=== PATIENT | male | born 1965 | race Caucasian/White ===

== ENCOUNTER 2019-01-25 20:32 | Observation (INO) ==
[2019-01-25] MEDS ORDERED: MORPHINE 4 MG/1 ML VIAL IV STA (21:05)
[2019-01-25] MEDS ORDERED: ASPIRIN 325 MG TABLET PO STA (21:05)
[2019-01-25] MEDS ORDERED: NITROGLYCERIN 2% OINT 1 INCH/GM PACK TOP STA (21:05)
[2019-01-25] MEDS ORDERED: ONDANSETRON 4 MG/2 ML VIAL IV STA (21:05)
[2019-01-25 21:23] LABS: Basophils % 0.3 % (0.0-0.8); Eosinophils # 0.1 10*3/uL (0.0-0.87); Eosinophils % 1.1 % (0.00-10.9); Hematocrit 37.9 VOL% (42.0-52.0); Hemoglobin 12.4 GM/DL (14.0-18.0); Immature Granulocytes % 0.4 %; Immature Granulocytes Absolute 0.04 #; Lymphocytes # 1.5 10*3/uL (1.4-4.0); Lymphocytes % 15.6 % (21.2-54.2); Mean Corpuscular HGB Conc 32.7 GM/DL (32-36); Mean Platelet Volume 9.2 FL (9.6-12.0); Monocytes % 10.2 % (1.7-12.7); Neutrophils % 72.4 % (38.7-73.9); Platelet Count 232 T/CUMM (130-400); Red Blood Count 4.21 MC/CUMM (3.8-5.5); Red Cell Distribution Width 13.1 % (9.3-17.3); White Blood Count 9.9 T/CUMM (4-12)
[2019-01-25 21:38] LABS: INR 0.9; PT Patient Result 10.2 SECS
[2019-01-25 21:48] LABS: Albumin 3.2 G/DL (3.4-5.0); Bilirubin,Total 0.4 MG/DL (0.2-1.0); Calcium 8.8 MG/DL (8.5-10.1); Osmolality,Calculated 282.3 MOS/KG (273-304); Total Protein 6.5 G/DL (6.4-8.3)
[2019-01-25 22:49] LABS: Apearance,Urine CLEAR (Clear); Bilirubin,Urine Negative (Negative); Blood, Urine Negative (Negative); Glucose,Urine (UA) Negative (Negative); Ketones,Urine Negative (Negative); Nitrite,Urine Negative (Negative); Protein,Urine Negative; RBC,Urine <1 /HPF (0-4); Urine Color Yellow (Yellow); Urine Specific Gravity 1.008 (1.001-1.035); Urine Urobilinogen < 2.0 EU/DL (0.2-1.0)
[2019-01-26] MEDS ORDERED: MORPHINE 4 MG/1 ML VIAL IV PRN (00:04)
[2019-01-26] MEDS ORDERED: ONDANSETRON 4 MG/2 ML VIAL IV PRN (00:04)
[2019-01-26] MEDS ORDERED: ACETAMINOPHEN 325 MG TABLET PO PRN (00:04)
[2019-01-26 00:47] LABS: Risk Ratio 3.09; VLDL CHOLESTEROL 31.2 MG/DL
[2019-01-26] MEDS ORDERED: PNEUMOCOCCAL VACCINE (23 VALENT) 0.5 ML VIAL IM ONE (01:46)
[2019-01-26] MEDS: ENOXAPARIN 40 MG/0.4 ML SYRINGE SUBCUT SCH (02:41)
[2019-01-26] MEDS: NITROGLYCERIN 2% OINT 1 INCH/GM PACK TOP SCH ×2 (02:51→08:15)
[2019-01-26 02:52] LABS: Barbiturates Screen,Urine Negative (Negative); Benzodiazepines Screen,Urine Positive (Negative); Cannabinoid Screen,Urine Negative (Negative); Opiate Screen,Urine Positive (Negative); Phencyclidine Screen,Urine Negative (Negative)
[2019-01-26] MEDS ORDERED: FAMOTIDINE 20 MG TABLET PO SCH (09:00)
[2019-01-26] MEDS ORDERED: ASPIRIN EC 325 MG TABLET PO SCH (09:00)
[2019-01-26] MEDS ORDERED: ALUM/MAG/SIMETH/LIDO VISC 1:1 30 ML BOTTLE PO ONE (09:04)
[2019-01-26] MEDS: PANTOPRAZOLE 40 MG TABLET PO SCH ×2 (09:53→20:46)
[2019-01-26] MEDS: AMITRIPTYLINE 25 MG TABLET PO SCH (13:08)
[2019-01-26] MEDS: METOPROLOL TARTRATE 25 MG TABLET PO SCH ×2 (13:08→20:46)
[2019-01-26] MEDS: LISINOPRIL 20 MG TABLET PO SCH (13:09)
[2019-01-26] MEDS: ALPRAZolam 0.5 MG TABLET PO SCH ×2 (13:09→20:46)
[2019-01-26] MEDS ORDERED: METOPROLOL TARTRATE 5 MG/5 ML VIAL IV ONE (14:17)
[2019-01-26] MEDS: GABAPENTIN 100 MG CAPSULE PO SCH ×2 (14:54→20:46)
[2019-01-26] MEDS ORDERED: OMEGA 3 ACID ETHYL ESTERS 1 GM CAPSULE PO SCH (21:00)
[2019-01-27] MEDS: ENOXAPARIN 40 MG/0.4 ML SYRINGE SUBCUT SCH (00:58)
[2019-01-27 06:01] LABS: Basophils % 0.4 % (0.0-0.8); Eosinophils # 0.3 10*3/uL (0.0-0.87); Eosinophils % 3.6 % (0.00-10.9); Hematocrit 38.3 VOL% (42.0-52.0); Hemoglobin 12.5 GM/DL (14.0-18.0); Immature Granulocytes % 0.4 %; Immature Granulocytes Absolute 0.03 #; Lymphocytes # 2.1 10*3/uL (1.4-4.0); Lymphocytes % 24.7 % (21.2-54.2); Mean Corpuscular HGB Conc 32.6 GM/DL (32-36); Mean Corpuscular Volume 91.8 FL (87-102); Mean Platelet Volume 9.7 FL (9.6-12.0); Monocytes % 9.1 % (1.7-12.7); Neutrophils % 61.8 % (38.7-73.9); Platelet Count 249 T/CUMM (130-400); Red Blood Count 4.17 MC/CUMM (3.8-5.5); Red Cell Distribution Width 13.3 % (9.3-17.3); White Blood Count 8.5 T/CUMM (4-12)
[2019-01-27 06:16] LABS: Calcium 8.6 MG/DL (8.5-10.1); Osmolality,Calculated 281.4 MOS/KG (273-304)
[2019-01-27 07:30] VITALS: BP 103/70
[2019-01-27] MEDS: AMITRIPTYLINE 25 MG TABLET PO SCH (09:21)
[2019-01-27] MEDS: METOPROLOL TARTRATE 25 MG TABLET PO SCH (09:21)
[2019-01-27] MEDS: GABAPENTIN 100 MG CAPSULE PO SCH (09:21)
[2019-01-27] MEDS: ALPRAZolam 0.5 MG TABLET PO SCH (09:21)
[2019-01-27] MEDS: PANTOPRAZOLE 40 MG TABLET PO SCH (09:21)
[2019-01-27] MEDS: LISINOPRIL 20 MG TABLET PO SCH (09:22)
== END 2019-01-27 11:04 | disposition home or self-care (01) ==
LOC: EDUNIT# → EDBD → N.ED 20:32 → N.EDINP 20:32 → SUATTDRO 01-26 00:04 → N.3E 01-26 00:28
PROVIDERS: ADMIT Internal Medicine; ATTEND Internal Medicine

== ENCOUNTER 2019-01-27 11:39 | Inpatient (IN) ==
[2019-01-27] MEDS ORDERED: LORazepam 2 MG/1 ML VIAL IV STA (12:01)
[2019-01-27] MEDS ORDERED: ONDANSETRON 4 MG/2 ML VIAL IV STA (12:01)
[2019-01-27] MEDS ORDERED: PANTOPRAZOLE 40 MG VIAL IV STA (12:01)
[2019-01-27] MEDS ORDERED: KETOROLAC 30 MG/1 ML VIAL IV STA (12:01)
[2019-01-27 12:26] LABS: Basophils % 0.3 % (0.0-0.8); Eosinophils # 0.2 10*3/uL (0.0-0.87); Hematocrit 40.9 VOL% (42.0-52.0); Immature Granulocytes % 0.5 %; Immature Granulocytes Absolute 0.05 #; Lymphocytes # 1.3 10*3/uL (1.4-4.0); Lymphocytes % 14.3 % (21.2-54.2); Mean Corpuscular HGB Conc 31.8 GM/DL (32-36); Mean Corpuscular Volume 91.3 FL (87-102); Mean Platelet Volume 9.1 FL (9.6-12.0); Monocytes % 7.4 % (1.7-12.7); Neutrophils % 75.5 % (38.7-73.9); Platelet Count 257 T/CUMM (130-400); Red Blood Count 4.48 MC/CUMM (3.8-5.5); Red Cell Distribution Width 13.2 % (9.3-17.3); White Blood Count 9.2 T/CUMM (4-12)
[2019-01-27 12:40] LABS: INR 0.9; PT Patient Result 9.8 SECS; Partial Thromboplastin Time 27.2 SECS (0-40)
[2019-01-27 13:00] LABS: Alanine Aminotransferase 48 U/L (16-61); Albumin 3.1 G/DL (3.4-5.0); Alkaline Phosphatase 93 U/L (45-117); Aspartate Amino Transferase 29 U/L (0-37); Bilirubin,Total < 0.39 MG/DL (0.2-1.0); Blood Urea Nitrogen 17 MG/DL (7-18); Calcium 8.7 MG/DL (8.5-10.1); Glucose 97 MG/DL (74-106); Osmolality,Calculated 278.5 MOS/KG (273-304); Total Protein 7.2 G/DL (6.4-8.3); Troponin I < 0.015 NG/ML (0.00-0.045)
[2019-01-27] MEDS ORDERED: ENOXAPARIN 100 MG/ML SYRINGE SUBCUT STA (14:01)
[2019-01-27] MEDS ORDERED: ACETAMINOPHEN 325 MG TABLET PO PRN (15:38)
[2019-01-27] MEDS ORDERED: ONDANSETRON 4 MG/2 ML VIAL IV PRN (15:38)
[2019-01-27] MEDS ORDERED: WARFARIN 5 MG TABLET PO SCH (18:00)
[2019-01-27] MEDS: ALPRAZolam 0.5 MG TABLET PO SCH (20:17)
[2019-01-27] MEDS: METOPROLOL TARTRATE 25 MG TABLET PO SCH (20:17)
[2019-01-27] MEDS: AMITRIPTYLINE 75 MG TABLET PO SCH (20:17)
[2019-01-27] MEDS: GABAPENTIN 100 MG CAPSULE PO SCH (20:17)
[2019-01-28] MEDS: ENOXAPARIN 100 MG/ML SYRINGE SUBCUT SCH ×2 (02:04→14:41)
[2019-01-28 05:52] LABS: Basophils # 0.1 10*3/uL (0.0-0.2); Basophils % 0.7 % (0.0-0.8); Eosinophils # 0.3 10*3/uL (0.0-0.87); Eosinophils % 4.3 % (0.00-10.9); Hemoglobin 11.9 GM/DL (14.0-18.0); Immature Granulocytes % 0.3 %; Immature Granulocytes Absolute 0.02 #; Lymphocytes # 2.6 10*3/uL (1.4-4.0); Lymphocytes % 33.4 % (21.2-54.2); Mean Corpuscular HGB Conc 32.2 GM/DL (32-36); Mean Platelet Volume 9.5 FL (9.6-12.0); Monocytes % 8.5 % (1.7-12.7); Neutrophils % 52.8 % (38.7-73.9); Platelet Count 262 T/CUMM (130-400); Red Blood Count 4.02 MC/CUMM (3.8-5.5); Red Cell Distribution Width 13.2 % (9.3-17.3); White Blood Count 7.7 T/CUMM (4-12)
[2019-01-28 06:21] LABS: Calcium 8.6 MG/DL (8.5-10.1); Osmolality,Calculated 285.1 MOS/KG (273-304)
[2019-01-28 08:10] LABS: INR 0.9; PT Patient Result 10.1 SECS
[2019-01-28] MEDS ORDERED: PANTOPRAZOLE 40 MG TABLET PO SCH (09:00)
[2019-01-28] MEDS: ALPRAZolam 0.5 MG TABLET PO SCH ×2 (09:22→20:46)
[2019-01-28] MEDS: GABAPENTIN 100 MG CAPSULE PO SCH ×3 (09:22→20:46)
[2019-01-28] MEDS: LISINOPRIL 20 MG TABLET PO SCH (09:22)
[2019-01-28] MEDS: METOPROLOL TARTRATE 25 MG TABLET PO SCH ×2 (09:22→20:46)
[2019-01-28] MEDS: WARFARIN 10 MG TABLET PO SCH (17:26)
[2019-01-28 20:23] LABS: Basophils # 0.1 10*3/uL (0.0-0.2); Basophils % 0.7 % (0.0-0.8); Eosinophils # 0.2 10*3/uL (0.0-0.87); Hematocrit 38.2 VOL% (42.0-52.0); Hemoglobin 12.1 GM/DL (14.0-18.0); Immature Granulocytes % 0.5 %; Immature Granulocytes Absolute 0.04 #; Lymphocytes # 2.5 10*3/uL (1.4-4.0); Lymphocytes % 31.1 % (21.2-54.2); Mean Corpuscular HGB Conc 31.7 GM/DL (32-36); Mean Corpuscular Volume 92.3 FL (87-102); Mean Platelet Volume 9.1 FL (9.6-12.0); Monocytes % 10.3 % (1.7-12.7); Neutrophils % 54.4 % (38.7-73.9); Platelet Count 260 T/CUMM (130-400); Red Blood Count 4.14 MC/CUMM (3.8-5.5); Red Cell Distribution Width 13.2 % (9.3-17.3); White Blood Count 8.1 T/CUMM (4-12)
[2019-01-28] MEDS: PANTOPRAZOLE 40 MG VIAL IV SCH (20:45)
[2019-01-28] MEDS: LACTULOSE 20 GM/30 ML UDCUP PO PRN (20:46)
[2019-01-28] MEDS: MORPHINE 4 MG/1 ML VIAL IV PRN (20:47)
[2019-01-28] MEDS: AMITRIPTYLINE 75 MG TABLET PO SCH (20:54)
[2019-01-28 22:48] LABS: Apearance,Urine CLEAR (Clear); Bilirubin,Urine Negative (Negative); Blood, Urine Negative (Negative); Glucose,Urine (UA) Negative (Negative); Ketones,Urine Negative (Negative); Nitrite,Urine Negative (Negative); Protein,Urine Negative; RBC,Urine 1 /HPF (0-4); Urine Color Straw (Yellow); Urine Specific Gravity 1.006 (1.001-1.035); Urine Urobilinogen < 2.0 EU/DL (0.2-1.0); WBC,Urine 1 /HPF (0-6)
[2019-01-29] MEDS: MORPHINE 4 MG/1 ML VIAL IV PRN ×6 (01:30→22:17)
[2019-01-29] MEDS: ENOXAPARIN 100 MG/ML SYRINGE SUBCUT SCH ×2 (03:10→14:01)
[2019-01-29 05:30] LABS: Basophils # 0.1 10*3/uL (0.0-0.2); Basophils % 0.7 % (0.0-0.8); Eosinophils # 0.3 10*3/uL (0.0-0.87); Eosinophils % 3.8 % (0.00-10.9); Hematocrit 37.9 VOL% (42.0-52.0); Hemoglobin 12.3 GM/DL (14.0-18.0); Immature Granulocytes % 0.9 %; Immature Granulocytes Absolute 0.08 #; Lymphocytes # 3.1 10*3/uL (1.4-4.0); Lymphocytes % 35.9 % (21.2-54.2); Mean Corpuscular HGB Conc 32.5 GM/DL (32-36); Mean Corpuscular Volume 92.4 FL (87-102); Mean Platelet Volume 9.6 FL (9.6-12.0); Monocytes % 9.8 % (1.7-12.7); Neutrophils % 48.9 % (38.7-73.9); Platelet Count 279 T/CUMM (130-400); Red Cell Distribution Width 13.3 % (9.3-17.3); White Blood Count 8.6 T/CUMM (4-12)
[2019-01-29 05:39] LABS: INR 1.1; PT Patient Result 11.4 SECS
[2019-01-29 05:59] LABS: Calcium 8.7 MG/DL (8.5-10.1)
[2019-01-29] MEDS: GABAPENTIN 100 MG CAPSULE PO SCH ×3 (09:41→20:38)
[2019-01-29] MEDS: PANTOPRAZOLE 40 MG VIAL IV SCH ×2 (09:41→20:37)
[2019-01-29] MEDS: ALPRAZolam 0.5 MG TABLET PO SCH ×2 (09:41→20:37)
[2019-01-29] MEDS: METOPROLOL TARTRATE 25 MG TABLET PO SCH ×2 (09:41→20:38)
[2019-01-29] MEDS: LISINOPRIL 20 MG TABLET PO SCH (09:42)
[2019-01-29] MEDS: WARFARIN 10 MG TABLET PO SCH (18:11)
[2019-01-29] MEDS: AMITRIPTYLINE 75 MG TABLET PO SCH (20:37)
[2019-01-30] MEDS: ENOXAPARIN 100 MG/ML SYRINGE SUBCUT SCH (03:01)
[2019-01-30 04:58] LABS: Basophils # 0.1 10*3/uL (0.0-0.2); Basophils % 0.8 % (0.0-0.8); Eosinophils # 0.4 10*3/uL (0.0-0.87); Eosinophils % 5.1 % (0.00-10.9); Hematocrit 37.3 VOL% (42.0-52.0); Hemoglobin 12.1 GM/DL (14.0-18.0); Immature Granulocytes % 0.4 %; Immature Granulocytes Absolute 0.03 #; Lymphocytes # 2.6 10*3/uL (1.4-4.0); Lymphocytes % 33.7 % (21.2-54.2); Mean Corpuscular HGB Conc 32.4 GM/DL (32-36); Mean Corpuscular Volume 92.1 FL (87-102); Mean Platelet Volume 9.6 FL (9.6-12.0); Platelet Count 267 T/CUMM (130-400); Red Blood Count 4.05 MC/CUMM (3.8-5.5); Red Cell Distribution Width 13.1 % (9.3-17.3); White Blood Count 7.7 T/CUMM (4-12)
[2019-01-30 05:25] LABS: Calcium 8.6 MG/DL (8.5-10.1); Osmolality,Calculated 284.1 MOS/KG (273-304)
[2019-01-30 05:26] LABS: INR 2.1
[2019-01-30 05:31] LABS: PT Patient Result 22.9 SECS
[2019-01-30] MEDS: MORPHINE 4 MG/1 ML VIAL IV PRN (05:57)
[2019-01-30] MEDS: METOPROLOL TARTRATE 25 MG TABLET PO SCH (08:29)
[2019-01-30] MEDS: ALPRAZolam 0.5 MG TABLET PO SCH (08:29)
[2019-01-30] MEDS: LISINOPRIL 20 MG TABLET PO SCH (08:29)
[2019-01-30] MEDS: GABAPENTIN 100 MG CAPSULE PO SCH (08:29)
[2019-01-30] MEDS: PANTOPRAZOLE 40 MG VIAL IV SCH (08:35)
[2019-01-30] MEDS ORDERED: APIXABAN 5 MG TABLET PO SCH (09:00)
[2019-01-30] MEDS: LACTULOSE 20 GM/30 ML UDCUP PO PRN (11:43)
[2019-01-30 12:41] VITALS: BP 126/74
== END 2019-01-30 14:51 | disposition home or self-care (01) | DRG 176 ==
LOC: N.ED 11:39 → N.EDINP 15:39 → SUATTDRO 15:39 → N.TELEN 16:25
PROVIDERS: ATTEND Family Medicine